=== PATIENT | male | born 1965 | race Caucasian/White ===

== ENCOUNTER 2023-04-08 08:43 | Day surgery (SDC) | payer OTHER ==
[2023-04-04 14:15] LABS: Basophils # (auto) 0 10 ^3/uL (0-0.2); Hemoglobin 15.5 g/dL (13.5-17.5); Mean Corpuscular Hgb Conc. 33.8 g/dL (32.0-36.0); Nucleated Red Blood Cells % 0.1 %
[2023-04-04 14:17] LABS: Basophils % (auto) 0.5 % (0.0-2.0); Eosinophils # (auto) 0.1 10 ^3/uL (0-0.8); Eosinophils % (auto) 1.8 % (0.0-7.0); Hematocrit 45.7 % (41.0-53.0); Lymphocytes # (auto) 1.3 10 ^3/uL (0.4-5.4); Lymphocytes % (auto) 16.1 % (10.0-50.0); Mean Corpuscular Hemoglobin 34.6 pg (28.0-32.0); Mean Corpuscular Volume 102.3 fL (80.0-100.0); Monocytes # (auto) 0.6 10 ^3/uL (0-1.3); Monocytes % (auto) 7.8 % (0.0-12.0); Neutrophils # (auto) 6.1 10 ^3/uL (1.6-8.6); Neutrophils % (auto) 73.8 % (37.0-80.0); Red Blood Cells 4.47 10^6/uL (4.5-5.90); Red Cell Distribution Width 13.7 % (11.8-14.3); White Blood Cell 8.2 10^3/uL (4.4-10.8)
[2023-04-04 14:38] LABS: INR 0.98 (0.9-1.15); Partial Thromboplastin Time 27.4 SEC (24.5-34.5); Prothrombin Time 10.3 sec (9.3-11.8)
[2023-04-04 14:44] LABS: Alanine Aminotransferase 41 U/L (7-40); Albumin 4.6 g/dL (3.2-4.8); Alkaline Phosphatase 52 U/L (46-116); Anion Gap 9 (5-15); Aspartate Aminotransferase 28 U/L (13-40); BUN/Creatinine Ratio 7.6 (10.0-20.0); Bilirubin, Total 1.2 mg/dL (0.2-1.0); Blood Urea Nitrogen 9 mg/dL (9-23); Calcium 9.6 mg/dL (8.5-10.1); Carbon Dioxide 28 mmol/L (20-30); Chloride 102 mmol/L (98-107); Glucose 97 mg/dL (74-106); Potassium 3.7 mmol/L (3.5-5.1); Sodium 139 mmol/L (136-145); Total Protein 7.4 g/dL (5.7-8.2)
[2023-04-07 16:29] LABS: Urine Bacteria NONE SEEN /hpf (None Seen); Urine Blood Negative /uL (Negative); Urine Clarity Clear (Clear); Urine Color Yellow (Yellow); Urine Protein, UAD Negative (Negative); Urine Specific Gravity 1.014 (1.001-1.035); Urine Urobilinogen Normal (Negative); Urine WBC <1 /hpf (0 - 3); Urine pH 6.5 (5.0-8.0)
[~2023-04-08] VITALS: Ht 177.8 cm; Wt 120.7 kg
[~2023-04-08 08:43] MED LIST: COLC0.6T56 PO; FAMO-68 PO; HYDR50CA2 PO; IBUP-1456 PO; METO-289 PO; NALT50TA5 PO; SENN-62 PO; TRAM50TA2 PO
[2023-04-08] MEDS ORDERED: fentaNYL CITRATE 100 MCG/2 ML VL ONE ×2 (09:37→12:46)
[2023-04-08] MEDS ORDERED: MEPERIDINE HCL (25 MG/ML) 1ML VIAL ONE ×2 (09:37→12:46)
[2023-04-08] MEDS ORDERED: MIDAZOLAM HCL 2MG/2ML 2ml VIAL (1mg/ml) ONE ×3 (09:37→13:11)
[2023-04-08] MEDS ORDERED: SUCCINYLCHOLINE CHLORIDE 20 MG/ML 10ML VIAL IV ONE (09:47)
[2023-04-08] MEDS ORDERED: ceFAZolin 1GM/50ML 100 ML IV ONE (09:50)
[2023-04-08] MEDS ORDERED: METOCLOPRAMIDE HCL 5MG/ml INJ 2ml VIAL IV PRN (10:15)
[2023-04-08] MEDS ORDERED: BUPIVACAINE HCL 50 ML ONE (10:15)
[2023-04-08] MEDS ORDERED: hydrALAZINE HCL 20 MG/ML VL IV PRN (10:15)
[2023-04-08] MEDS ORDERED: MIDAZOLAM HCL 2MG/2ML 2ml VIAL (1mg/ml) IV PRN (10:15)
[2023-04-08] MEDS ORDERED: DexAMETHasone SOD PHOS 10MG/1ML VIAL INJ ONE ×2 (10:15→13:10)
[2023-04-08] MEDS ORDERED: HYDROmorphone HCL 2 MG/ML VL/or syr IV PRN (10:15)
[2023-04-08] MEDS ORDERED: MORPHINE SULFATE 4 MG/ML SYR/VIAL IV PRN (10:15)
[2023-04-08] MEDS ORDERED: ePHEDrine SULFATE 50 MG/ML AMP IV PRN (10:15)
[2023-04-08] MEDS ORDERED: ONDANSETRON HCL 4 MG/2 ML VIAL IV PRN (10:15)
[2023-04-08] MEDS ORDERED: PROPOFOL 10 MG/ML 20 ML IV ONE (10:15)
[2023-04-08] MEDS ORDERED: LABETALOL HCL 5 MG/ML 4ML SYRINGE IV PRN (10:15)
[2023-04-08] MEDS ORDERED: ONDANSETRON HCL 4 MG/2 ML VIAL ONE (10:24)
[2023-04-08] MEDS ORDERED: HYDR1TAB97 PO (10:57)
[2023-04-08 11:12] VITALS: TEMP 97.2; O2SAT 100
[2023-04-08 12:27] VITALS: BP 146/85; PULSE 61; RESP 13; O2SAT 98
[2023-04-08] MEDS ORDERED: ETOMIDATE (2MG/ML) 20ML VIAL IV ONE (13:10)
[2023-04-08] MEDS ORDERED: ROCURONIUM 10MG/ML 10ML VIAL IV ONE (14:28)
[2023-04-08] MEDS ORDERED: SUGAMMADEX 200mg/2ml Vial (100MG/ML) IV ONE (14:32)
== END 2023-04-08 12:30 | disposition home or self-care (01) ==
LOC: SUR 08:43
PROVIDERS: ATTEND Orthopaedic Surgery Sports Medicine
DX: M1A.0221 Idiopathic chronic gout, left elbow, with tophus (tophi) (principal); M70.22 Olecranon bursitis, left elbow; I10 Essential (primary) hypertension; E78.5 Hyperlipidemia, unspecified; E66.01 Morbid (severe) obesity due to excess calories; Z68.38 Body mass index [BMI] 38.0-38.9, adult; Z79.899 Other long term (current) drug therapy; Z98.890 Other specified postprocedural states
CPT/HCPCS: 24075; 24105; 36415; 80053; 81001; 85025; 85610; 85730; 88305; J0330; J0690; J1100; J2175; J2250; J2405; J2704; J3010; J3490

== ENCOUNTER 2024-09-20 16:34 | Emergency (ER) | payer OTHER ==
[~2024-09-20] VITALS: Ht 177.8 cm; Wt 125.5 kg
[~2024-09-20 16:34] MED LIST changes: +HYDR1TAB97 PO
[2024-09-20 17:42] LABS: Basophils # (auto) 0.1 10 ^3/uL (0-0.2); Basophils % (auto) 0.9 % (0.0-2.0); Eosinophils # (auto) 0.3 10 ^3/uL (0-0.8); Eosinophils % (auto) 1.8 % (0.0-7.0); Hemoglobin 15.3 g/dL (13.5-17.5); Lymphocytes # (auto) 1.8 10 ^3/uL (0.4-5.4); Lymphocytes % (auto) 12.5 % (10.0-50.0); Mean Corpuscular Volume 91.2 fL (80.0-100.0); Monocytes % (auto) 7.2 % (0.0-12.0); Neutrophils # (auto) 10.9 10 ^3/uL (1.6-8.6); Neutrophils % (auto) 77.6 % (37.0-80.0); Platelet Count (auto) 300 10^3/uL (140-450); Red Blood Cells 4.93 10^6/uL (4.5-5.90)
--- NOTE | 2024-09-20 17:44 | ED.PDOC ---
History of Present Illness(SKN HPI Comments Reports increased pain with swelling and draiange from incision site on his left , lateral foot. Swelling with discoloration noted. States he had surgery to the left foot on 09/10/24 at the [facility] in [place]. Denies fever, chills, nausea, or vomiting Chief Complaint: Wound Check Time Seen by MD: 16:42 Primary Care Provider: [facility] History of Present Illness: Nurses Notes, Medications, Allergies Allergies: Coded Allergies: Statins (Unverified Allergy, Severe, anaphylaxis, 04/04/23) Home Meds Active Scripts Hydrocodone-Acetaminophen (Hydrocodone/Acetaminophen 5-325 mg) 1 Tab Tab, 1 TAB PO Q6HP PRN for 5 Days, #20 TAB Prov:ARMAND RITTER MD 04/08/23 Reported Medications Tramadol Hcl (Tramadol Hcl) 50 Mg Tab, 50 MG PO DAILY, TAB 04/04/23 Sennosides-Docusate Sodium (Senokot S) 1 Tab Tab, 1 TAB PO DAILY, TAB 04/04/23 Naltrexone Hcl (Naltrexone Hcl) 50 Mg Tab, 50 MG PO DAILY, TAB 04/04/23 Metoprolol Succinate (Metoprolol Succinate Er) 50 Mg Tab, 50 MG PO DAILY, TAB 04/04/23 Ibuprofen (Ibuprofen) 800 Mg Tab, 800 MG PO Q8HP, TAB 04/04/23 Hydroxyzine Pamoate (Hydroxyzine Pamoate) 50 Mg Cap, 50 MG PO BID, CAP 04/04/23 Famotidine (Gnp Acid Spline Rolling Machine Job Setter Maximum) 20 Mg Tab, 20 MG PO BID, TAB 04/04/23 Colchicine (COLCRYS TABLET) 0.6 Mg Tb, 0.6 MG PO DAILY, TAB 04/04/23 Information Source: Patient Mode of Arrival: Ambulatory Past Medical History PAST MEDICAL HISTORY: High Lipids, HTN, [place] Surgical History: Tonsillectomy Family History Family History: Unobtainable Social History Smoker: Non-Smoker Alcohol: Heavy Drugs: Denies Drug Use Lives In: Home Constitutional: denies: chills, diaphoresis, fatigue, fever, malaise, sweats, weakness, others EENTM: denies: blurred vision, double vision, ear bleeding, ear discharge, ear drainage, ear pain, ear ringing, eye pain, eye redness, hearing loss, mouth pain, mouth swelling, nasal discharge, nose bleeding, nose congestion, nose pain, photophobia, tearing, throat pain, throat swelling, voice changes, others Respiratory: denies: cough, hemoptysis, orthopnea, SOB at rest, shortness of breath, SOB with excertion, stridor, wheezing, others Cardiovascular: denies: chest pain, dizzy spells, diaphoresis, Dyspnea on exertion, edema, irregular heart beat, left arm pain, lightheadedness, palpitations, PND, syncope, others Gastrointestinal: denies: abdomen distended, abdominal pain, blood streaked bowels, constipated, diarrhea, dysphagia, difficulty swallowing, hematemesis, melena, nausea, poor appetite, poor fluid intake, rectal bleeding, rectal pain, vomiting, others Genitourinary: denies: burning, dysuria, flank pain, frequency, hematuria, incontinence, penile discharge, penile sore, pain, testicle pain, testicle swelling, urgency, others Neurological: denies: dizziness, fainting, headache, left sided numbness, left sided weakness, numbness, paresthesia, pre-existing deficit, right sided numbness, right sided weakness, seizure, speech problems, tingling, tremors, weakness, others Musculoskeletal: reports: gout (Bilateral hands and digits); denies: back pain, joint pain, joint swelling, muscle pain, muscle stiffness, neck pain, others Integumetry: reports: wounds (Left foot); denies: bruises, change in color, change in hair/nails, dryness, laceration, lesions, lumps, rash, others Allergic/Immunocompromised: denies: Difficulty Healing, Frequent Infections, Hives, Itching, others Hematologic/Lymphatic: denies: anemia, blood clots, easy bleeding, easy bruising, swollen glands, others Endocrine: denies: excessive hunger, excessive sweating, excessive thirst, excessive urination, flushing, intolerance to cold, intolerance to heat, unexplained weight gain, unexplained weight loss, others Psychiatric: denies: anxiety, bipolar disorder, depression, hopeless, panic disorder, schizophrenia, sleepless, suicidal, others Physical Exam General Appearance: No Apparent Distress, Normal HEENT: Pharynx Normal Neck: Full Range of Motion, Non-Tender Respiratory: Chest Non-Tender, Lungs Clear, No Respiratory Distress, Normal Breath Sounds Cardiovascular: No Edema, No JVD, No Murmur, No Gallop, Normal Peripheral Pulses, Regular Rate/Rhythm Breast Exam: Deferred Gastrointestinal: No Organomegaly, Non Tender, No Pulsatile Mass, Normal Bowel Sounds, Soft Genitalia: Deferred Pelvic: Deferred Rectal: Deferred Extremities: Normal capillary refill, Normal inspection, Normal range of motion, Non-tender, Pedal edema (Left Foot 3+ pitting) Musculoskeletal : Apperance: Normal Neurologic: Alert, food beverage manager II-XII nml as Tested, No Motor Deficits, Normal Affect, Normal Mood, No Sensory Deficits Cerebellar Function: Normal Reflexes: Normal Skin: Dry, Normal Color, Warm, Wounds (Moderate edema left foot with noted blister wound to dorsum aspect noted erythema throughout no noted drainage positive pedal pulse) Lymphatic: No Adenopathy Was a procedure done? Was a procedure done?: No Differential Diagnosis (INTG) Differential Diagnosis: Cellulitis, Contusion, Hematoma X-Ray, Labs, Meds, VS Vital Signs Date Time Temp Pulse Resp B/P (MAP) Pulse Ox O2 Delivery O2 Flow Rate FiO2 09/20/24 17:57 102 18 153/102 09/20/24 17:30 102 18 97 Room Air 09/20/24 17:30 97.7 102 18 153/102 (119) 97 97.7 09/20/24 17:16 97.7 102 18 153/102 (119) 97 97.7 Lab Test 09/20/24 17:55 09/20/24 17:19 Range/Units Lactic Acid Level 0.9 0.4-2.0 mmol/L White Blood Count 14.0 H 4.4-10.8 10^3/uL Red Blood Count 4.93 4.5-5.90 10^6/uL Hemoglobin 15.3 13.5-17.5 g/dL Hematocrit 45.0 41.0-53.0 % Mean Corpuscular Volume 91.2 80.0-100.0 fL Mean Corpuscular Hemoglobin 31.0 28.0-32.0 pg Mean Corpuscular Hemoglobin Concent 34.0 32.0-36.0 g/dL Red Cell Distribution Width 16.0 H 11.8-14.3 % Platelet Count 300 140-450 10^3/uL Mean Platelet Volume 8.3 6.9-10.8 fL Neutrophils (%) (Auto) 77.6 37.0-80.0 % Lymphocytes (%) (Auto) 12.5 10.0-50.0 % Monocytes (%) (Auto) 7.2 0.0-12.0 % Eosinophils (%) (Auto) 1.8 0.0-7.0 % Basophils (%) (Auto) 0.9 0.0-2.0 % Neutrophils # (Auto) 10.9 H 1.6-8.6 10 ^3/uL Lymphocytes # (Auto) 1.8 0.4-5.4 10 ^3/uL Monocytes # (Auto) 1.0 0-1.3 10 ^3/uL Eosinophils # (Auto) 0.3 0-0.8 10 ^3/uL Basophils # (Auto) 0.1 0-0.2 10 ^3/uL Nucleated Red Blood Cells 0.0 % Sodium Level 138 136-145 mmol/L Potassium Level 4.0 3.5-5.1 mmol/L Chloride Level 108 H 98-107 mmol/L Carbon Dioxide Level 20 20-31 mmol/L Anion Gap 10 5-15 Blood Urea Nitrogen 20 9-23 mg/dL Creatinine 1.07 0.700-1.30 mg/dL Glomerular Filtration Rate Calc 79 >90 mL/min BUN/Creatinine Ratio 18.7 10.0-20.0 Serum Glucose 94 74-106 mg/dL Calcium Level 9.8 8.7-10.4 mg/dL Total Bilirubin 0.4 0.2-1.0 mg/dL Aspartate Amino Transferase (AST) 17 13-40 U/L Alanine Aminotransferase (ALT) 11 7-40 U/L Alkaline Phosphatase 73 46-116 U/L Total Protein 8.0 5.7-8.2 g/dL Albumin 4.8 3.2-4.8 g/dL Current Medications Medications (Trade) Dose Ordered Sig/Ancelmo Route Start Time Stop Time Status Last Admin Morphine Sulfate 2 mg ONCE ONCE IM 09/20/24 17:15 09/20/24 17:16 DC 09/20/24 17:57 X-Ray, Labs, Meds, VS Comment IMAGING: CT LEFT FOOT IMPRESSION: Significant subcutaneous edema. Fluid collection containing probable bone fragments adjacent to the medial malleolus. Large fluid collection containing possible blood products and less likely bony fragments adjacent to the distal 5th metatarsal. There also multiple subcortical cysts the most prominent involving the 1st metatarsophalangeal joint consistent with severe osteoarthritis. : WBC 14.0, NEUTROPHILS 10 LACTIC ACID 0.9 CMP WITHIN NORMAL LIMITS MEDICATIONS: VANCOMYCIN 1 G IV MORPHINE 2 MG IV PLAN: SPOKE WITH DR. ANGELA WILDE ACCEPTS PATIENT FOR TRANSFER VIA BLS FOR CONSULTATION WITH PATIENT'S SURGEON DR. SARAVIA. PATIENT IS STABLE FOR BLS TRANSFER. PATIENT AGREES WITH PLAN OF CARE AND TRANSFER. Time of 1ST Reevaluation: 17:43 Reevaluation 1ST: Unchanged Patient Education/Counseling: Diagnosis, Treatment, Prognosis, Need For Follow Up Family Education/Counseling: No Family Present Departure 1 Departure Time of Disposition: 17:44 Impression: Primary Impression: Infection of left foot Disposition: 04 INTERMEDIATE CARE FACILITY Condition: Stable Discharged With: Self Critical Care Note Critical Care Time?: No Stability Stability form required: GREER Escalera Sep 20, 2024 17:44
[2024-09-20] MEDS: MORPHINE SULFATE INJ 2 MG/ml SYRG IM ONE (17:57)
[2024-09-20 18:00] LABS: Alanine Aminotransferase 11 U/L (7-40); Alkaline Phosphatase 73 U/L (46-116); Anion Gap 10 (5-15); Aspartate Aminotransferase 17 U/L (13-40); BUN/Creatinine Ratio 18.7 (10.0-20.0); Blood Urea Nitrogen 20 mg/dL (9-23); Calcium 9.8 mg/dL (8.7-10.4); Carbon Dioxide 20 mmol/L (20-31); Glucose 94 mg/dL (74-106); Sodium 138 mmol/L (136-145)
[2024-09-20 18:01] LABS: Albumin 4.8 g/dL (3.2-4.8); Chloride 108 mmol/L (98-107)
[2024-09-20 18:02] LABS: Bilirubin, Total 0.4 mg/dL (0.2-1.0)
--- NOTE | 2024-09-20 19:18 | DVH ---
EXAMINATION: CT CT L FOOT WO CONTRAST INDICATION: post surgical infection COMPARISON: None TECHNIQUE: CT of the left foot was performed without contrast. Volume transverse images were obtained reconstructed in multiple planes using bone and soft tissue algorithms. CONTRAST: None CTDI = 7.75 mGy and DLP = 222.91 mGy cm FINDINGS: Bones are osteopenic.110 there is a large amount of subcutaneous fluid involving the dorsum and lateral hindfoot of the ankle and foot. There are focal calcifications possibilities is result of enthesopathy or bony fragmentation adjacent to the medial malleolus and also in the achilles. There is a large loculated fluid collection also c ontaining dense debris possibly old blood adjacent to the dorsal aspect of the 5th meta tarsal. Adjac ent to multiple sutures. There is a significant subcortical cyst involving the head of the 1st metata rsal probably degenerative in nature. There is also a subcortical cysts involving the middle phalanx of the 3rd digit probably degenerative in nature. The soft tissue lesion adjacent to the 5th metatarsal measures 4.66 x 2.47 by 4.68 cm contains either dense blood products or possible blood products and calcifications. IMPRESSION: Significant subcutaneous edema. Fluid collection containing probable bone fragments adjacent to the medial malleolus. Large fluid collection containing possible blood products and less likely bony fragments adjacent to the distal 5th metatarsal. There also multiple subcortical cysts the most prominent involving the 1st metatarsophalangeal joint consistent with severe osteoarthritis.
[2024-09-20] MEDS: VANCOMYCIN 1GM/200ML PM 250 ML IV ONE (19:39)
[2024-09-20] MEDS: MORPHINE SULFATE INJ 2 MG/ml SYRG IV ONE (21:01)
[2024-09-20 21:24] VITALS: BP 171/106; PULSE 63; RESP 20; TEMP 97.4; O2SAT 100
[2024-09-20] MEDS: cloNIDine HCL 0.1 MG TAB PO ONE (21:28)
== END 2024-09-20 17:44 | disposition short-term general hospital (02) ==
LOC: ER 16:34
DX: L08.89 Other specified local infections of the skin and subcutaneous tissue (principal); M79.671 Pain in right foot; I10 Essential (primary) hypertension; E78.5 Hyperlipidemia, unspecified; Z79.899 Other long term (current) drug therapy; Z90.89 Acquired absence of other organs; Z88.8 Allergy status to other drugs, medicaments and biological substances
CPT/HCPCS: 36415; 73700; 80053; 83605; 85025; 87040; 96372; 99285; J2270

== ENCOUNTER 2024-11-09 14:11 | Inpatient (IN) | payer OTHER ==
[~2024-11-09] VITALS: Ht 177.8 cm; Wt 118.0 kg
--- NOTE | 2024-11-09 14:50 | ED.PDOC ---
History of Present Illness HPI Comments 59-year-old male with PMHx Gout, Alcoholic Pancreatitis, Gastritis presents with a chief complaint of syncope. Per , patient has had a lot of alcohol today and also took muscle relaxers and pain killers. Patient states that he was "just walking" and then had a syncopal episode and he lost consciousness. Patient mentions that he hit his head from the fall. Patient has pin point pupils. Chief Complaint: Syncope Time Seen by MD: 14:40 Primary Care Provider: [place] Reviewed Notes: Medications, Allergies Allergies: Coded Allergies: Statins (Unverified Allergy, Severe, anaphylaxis, 04/04/23) Home Meds Active Scripts Hydrocodone-Acetaminophen (Hydrocodone/Acetaminophen 5-325 mg) 1 Tab Tab, 1 TAB PO Q6HP PRN for 5 Days, #20 TAB Prov:ARMAND RITTER MD 04/08/23 Reported Medications Tramadol Hcl (Tramadol Hcl) 50 Mg Tab, 50 MG PO DAILY, TAB 04/04/23 Sennosides-Docusate Sodium (Senokot S) 1 Tab Tab, 1 TAB PO DAILY, TAB 04/04/23 Naltrexone Hcl (Naltrexone Hcl) 50 Mg Tab, 50 MG PO DAILY, TAB 04/04/23 Metoprolol Succinate (Metoprolol Succinate Er) 50 Mg Tab, 50 MG PO DAILY, TAB 04/04/23 Ibuprofen (Ibuprofen) 800 Mg Tab, 800 MG PO Q8HP, TAB 04/04/23 Hydroxyzine Pamoate (Hydroxyzine Pamoate) 50 Mg Cap, 50 MG PO BID, CAP 04/04/23 Famotidine (Gnp Acid Hvac Field Service Technician Maximum) 20 Mg Tab, 20 MG PO BID, TAB 04/04/23 Colchicine (COLCRYS TABLET) 0.6 Mg Tb, 0.6 MG PO DAILY, TAB 04/04/23 Information Source: Patient Mode of Arrival: Ambulatory Severity: Moderate Timing: Hours Duration: Since onset Prehospital treatment: [facility] Past Medical History PAST MEDICAL HISTORY: High Lipids, HTN, [place] Surgical History: Tonsillectomy Family History Family History: Unobtainable Social History Smoker: Non-Smoker Alcohol: Heavy Drugs: Denies Drug Use Lives In: Home Constitutional: denies: chills, diaphoresis, fatigue, fever, malaise, sweats, weakness, others EENTM: denies: blurred vision, double vision, ear bleeding, ear discharge, ear drainage, ear pain, ear ringing, eye pain, eye redness, hearing loss, mouth pain, mouth swelling, nasal discharge, nose bleeding, nose congestion, nose pain, photophobia, tearing, throat pain, throat swelling, voice changes, others Respiratory: denies: cough, hemoptysis, orthopnea, SOB at rest, shortness of breath, SOB with excertion, stridor, wheezing, others Cardiovascular: reports: syncope; denies: chest pain, dizzy spells, diaphoresis, Dyspnea on exertion, edema, irregular heart beat, left arm pain, lightheadedness, palpitations, PND, others Gastrointestinal: denies: abdomen distended, abdominal pain, blood streaked bowels, constipated, diarrhea, dysphagia, difficulty swallowing, hematemesis, melena, nausea, poor appetite, poor fluid intake, rectal bleeding, rectal pain, vomiting, others Genitourinary: denies: burning, dysuria, flank pain, frequency, hematuria, incontinence, penile discharge, penile sore, pain, testicle pain, testicle swelling, urgency, others Neurological: denies: dizziness, fainting, headache, left sided numbness, left sided weakness, numbness, paresthesia, pre-existing deficit, right sided numbness, right sided weakness, seizure, speech problems, tingling, tremors, weakness, others Musculoskeletal: denies: back pain, gout, joint pain, joint swelling, muscle pain, muscle stiffness, neck pain, others Integumetry: denies: bruises, change in color, change in hair/nails, dryness, laceration, lesions, lumps, rash, wounds, others Allergic/Immunocompromised: denies: Difficulty Healing, Frequent Infections, Hives, Itching, others Hematologic/Lymphatic: denies: anemia, blood clots, easy bleeding, easy bruising, swollen glands, others Endocrine: denies: excessive hunger, excessive sweating, excessive thirst, excessive urination, flushing, intolerance to cold, intolerance to heat, unexplained weight gain, unexplained weight loss, others Psychiatric: denies: anxiety, bipolar disorder, depression, hopeless, panic disorder, schizophrenia, sleepless, suicidal, others All Other Systems: Reviewed and Negative Physical Exam General Appearance: No Apparent Distress, Normal HEENT: Normal ENT Inspection, Pharynx Normal, TMs Normal Neck: Full Range of Motion, Non-Tender, Normal, Normal Inspection Respiratory: Chest Non-Tender, Lungs Clear, No Accessory Muscle Use, No R espiratory Distress, Normal Breath Sounds Cardiovascular: No Edema, No JVD, No Murmur, No Gallop, Normal Peripheral Pulses, Regular Rate/Rhythm Breast Exam: Deferred Gastrointestinal: No Organomegaly, Non Tender, No Pulsatile Mass, Normal Bowel Sounds, Soft Genitalia: Deferred Pelvic: Deferred Rectal: Deferred Extremities: No calf tenderness, Normal capillary refill, Normal inspection, Normal range of motion, Non-tender, No pedal edema Musculoskeletal : Apperance: Normal Neurologic: Alert, director of hemophilia II-XII nml as Tested, No Motor Deficits, Normal Affect, Normal Mood, No Sensory Deficits, Other (PINPOINT PUPILS) Cerebellar Function: Normal Reflexes: Normal Skin: Dry, Normal Color, Warm Lymphatic: No Adenopathy Was a procedure done? Was a procedure done?: No Differential Dx Considerations may include: intoxication, vasovagal syncope, grove [place]ro syncope, acs, hypoglycemia, hypovolemia, electrolyte disorders, seizure, intracranial bleed, skull fracture, c spine fracture X-Ray, Labs, Meds, VS Vital Signs Date Time Temp Pulse Resp B/P (MAP) Pulse Ox O2 Delivery O2 Flow Rate FiO2 11/09/24 14:30 98.6 120 18 159/99 (119) 98 98.6 11/09/24 14:16 115 Lab Test 11/09/24 16:32 11/09/24 16:27 11/09/24 15:35 Range/Units Troponin I High Sensitivity Pending 9 </=54 ng/L Urine Opiates Screen Pending Urine Fentanyl Screen Pending Urine Barbiturates Screen Pending Urine Phencyclidine Screen Pending Urine Amphetamines Screen Pending Urine Benzodiazepines Screen Pending Urine Cocaine Screen Pending Urine Cannabinoids Screen Pending White Blood Count 8.0 4.4-10.8 10^3/uL Red Blood Count 5.22 4.5-5.90 10^6/uL Hemoglobin 16.9 13.5-17.5 g/dL Hematocrit 50.1 41.0-53.0 % Mean Corpuscular Volume 96.0 80.0-100.0 fL Mean Corpuscular Hemoglobin 32.4 H 28.0-32.0 pg Mean Corpuscular Hemoglobin Concent 33.8 32.0-36.0 g/dL Red Cell Distribution Width 19.0 H 11.8-14.3 % Platelet Count 296 140-450 10^3/uL Mean Platelet Volume 7.8 6.9-10.8 fL Neutrophils (%) (Auto) 68.6 37.0-80.0 % Lymphocytes (%) (Auto) 22.1 10.0-50.0 % Monocytes (%) (Auto) 7.8 0.0-12.0 % Eosinophils (%) (Auto) 0.6 0.0-7.0 % Basophils (%) (Auto) 0.9 0.0-2.0 % Neutrophils # (Auto) 5.5 1.6-8.6 10 ^3/uL Lymphocytes # (Auto) 1.8 0.4-5.4 10 ^3/uL Monocytes # (Auto) 0.6 0-1.3 10 ^3/uL Eosinophils # (Auto) 0 0-0.8 10 ^3/uL Basophils # (Auto) 0.1 0-0.2 10 ^3/uL Nucleated Red Blood Cells 0.1 % Sodium Level 142 136-145 mmol/L Potassium Level 4.6 3.5-5.1 mmol/L Chloride Level 104 98-107 mmol/L Carbon Dioxide Level 15 L 20-31 mmol/L Anion Gap 23 H 5-15 Blood Urea Nitrogen 16 9-23 mg/dL Creatinine 1.05 0.700-1.30 mg/dL Glomerular Filtration Rate Calc 81 >90 mL/min BUN/Creatinine Ratio 15.2 10.0-20.0 Serum Glucose 69 L 74-106 mg/dL Calcium Level 9.7 8.7-10.4 mg/dL Plasma/Serum Blood Alcohol 343.4 H <10 mg/dL Time of 1ST Reevaluation: 15:20 Reevaluation 1ST: Unchanged Reevaluation 2ND: Improved Patient Education/Counseling: Diagnosis, Treatment, Prognosis, Need For Follow Up Family Education/Counseling: No Family Present Additional Information although pt has an high level of etoh, he is clinically sober, alert, clear minded. it is unusual to black out suddenly then wake up to be in a normal state. i will admit him for further workups Departure 1 Departure Time of Disposition: 16:40 Impression: Primary Impression: Syncope Qualified Codes: R55 - Syncope and collapse Additional Impression: ETOH abuse Disposition: ADMITTED INPATIENT Admit to: Tele Condition: Serious Discharged With: Self Critical Care Note Critical Care Time?: Yes (55 min-critical care time only) Critical care comment: due to concerns for patient's condition deteriorating, the care required my highest level of attention and readiness to intervene. i assessed the patient's condition, ordered the proper tests and treatments, reassessed for response and reviewed the results. i communicated with medical personnel and formulated a plan of care. total critical care time does not include any procedures Stability Stability form required: No Heart Score Heart Score: Heart Score Response (Comments) Value History N/A 0 EKG N/A 0 Age N/A 0 Risk Factors N/A 0 Troponin N/A 0 Total 0 I personally scribed for DESEAN ARROYO MD ([email or web address]) on 11/09/24 at 14:50. Electronically submitted by Carlos Zuñiga ([email or web address]). EDSEAN ARROYO MD November 09, 2024 14:50
--- NOTE | 2024-11-09 15:22 | DVH ---
INDICATION: syncope TECHNIQUE: Frontal view of the chest. COMPARISON: None FINDINGS: Findings:. The heart and mediastinal contours are grossly unremarkable. There is no evidence of pleu ral disease. The lungs are clear. The bony structures of the chest are intact without fracture. IMPRESSION: 1. No evidence of acute disease.
--- NOTE | 2024-11-09 15:23 | DVH ---
INDICATION: syncope COMPARISON: None TECHNIQUE: 5 views of the cervical spine were obtained. FINDINGS: The cervical vertebral alignment is normal. The predental space is normal. The intervertebral disc spaces are well-maintained. No significant facet arthropathy is noted. No acute fracture, vertebral compression deformity or aggressive osseous lesions. The imaged lung apices are unremarkable. There is calcification seen in the left neck region possibly carotid calcification. IMPRESSION: 1. No acute fracture. 2. Calcification in the left neck region possibly carotid artery calcification. Recommend carotid dop pler for further workup.
--- NOTE | 2024-11-09 15:33 | DVH ---
EXAM: CT HEAD WITHOUT CONTRAST HISTORY: syncope COMPARISON: None TECHNIQUE: Noncontrast axial CT images of the head were performed. Sagittal and coronal reformatted i mages were obtained. This CT exam was performed using 1 or more of the following dose reduction techn iques: Automated exposure control, adjustment of the mA and/or kv according to patient size, or the u se of iterative reconstruction techniques. Radiation Dose: CTDI volume is 61.75 mGy. Dose-length product is 1216.83 mGy*cm FINDINGS: There is mild global brain atrophy. No intracranial hemorrhage, mass, hydrocephalus, or evidence of a cute large vessel infarct. There are atherosclerotic calcifications of the cavernous carotid arteries . Oscar cisterna magna is incidentally noted. There is minimal mucosal thickening in the left maxillar y sinus. There is a dental cavity involving the most posterior right maxillary molar tooth, not full y imaged here. There is lucency about the roots of the bilateral most posterior maxillary molar teet h, not fully imaged here. There is divergent optic gaze. The bilateral mastoid air cells and middle e ar spaces are clear. No cranial fracture or scalp edema. IMPRESSION: 1. No acute intracranial process. 2. Minimal left maxillary sinus disease. 3. At least 1 maxillary dental cavity and lucency about the roots of multiple maxillary teeth. Recomm end outpatient dental consultation.
[2024-11-09 15:52] LABS: Basophils # (auto) 0.1 10 ^3/uL (0-0.2); Basophils % (auto) 0.9 % (0.0-2.0); Eosinophils # (auto) 0 10 ^3/uL (0-0.8); Eosinophils % (auto) 0.6 % (0.0-7.0); Hematocrit 50.1 % (41.0-53.0); Hemoglobin 16.9 g/dL (13.5-17.5); Lymphocytes # (auto) 1.8 10 ^3/uL (0.4-5.4); Lymphocytes % (auto) 22.1 % (10.0-50.0); Mean Corpuscular Hemoglobin 32.4 pg (28.0-32.0); Mean Corpuscular Hgb Conc. 33.8 g/dL (32.0-36.0); Monocytes # (auto) 0.6 10 ^3/uL (0-1.3); Monocytes % (auto) 7.8 % (0.0-12.0); Neutrophils # (auto) 5.5 10 ^3/uL (1.6-8.6); Neutrophils % (auto) 68.6 % (37.0-80.0); Nucleated Red Blood Cells % 0.1 %; Platelet Count (auto) 296 10^3/uL (140-450); Red Blood Cells 5.22 10^6/uL (4.5-5.90)
[2024-11-09 16:00] LABS: Chloride 104 mmol/L (98-107); Potassium 4.6 mmol/L (3.5-5.1); Sodium 142 mmol/L (136-145)
[2024-11-09 16:01] LABS: Anion Gap 23 (5-15); Carbon Dioxide 15 mmol/L (20-31)
[2024-11-09 16:02] LABS: Calcium 9.7 mg/dL (8.7-10.4)
[2024-11-09 16:06] LABS: BUN/Creatinine Ratio 15.2 (10.0-20.0); Blood Urea Nitrogen 16 mg/dL (9-23)
[2024-11-09] MEDS: IBUPROFEN 800 MG TAB PO ONE (16:06)
[2024-11-09 16:07] LABS: Glucose 69 mg/dL (74-106)
[2024-11-09 16:16] LABS: Blood Alcohol 343.4 mg/dL (<10)
[2024-11-09 16:50] LABS: Amphetamine Screen, Urine Neg (NEGATIVE); Barbiturate Scree,Urine Neg (NEGATIVE); Benzodiazephine Screen, Urine Neg (NEGATIVE); Cannabinoid Screen, Urine Neg (NEGATIVE); Cocaine Screen, Urine Neg (NEGATIVE); Opiate Scree,Urine Neg (NEGATIVE); Phencyclidine Screen, Urine Neg (NEGATIVE)
--- NOTE | 2024-11-09 17:06 | DVHHP2 ---
History of Present Illness Reason for Visit: Syncope History of Present Illness Jonny Valiente is a 59-year-old male with past medical history of hypertension, hyperlipidemia, [place], gout, gastritis, alcoholic pancreatitis, tonsillectomy, excision of tophi, left hand plate, right hand screw, bilateral carpal tunnel surgery, bilateral knee surgery, bilateral shoulder surgery, left foot surgery x5, and bilateral elbow surgery who presents to the ED with a syncopal episode. 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 Patient reports that he passed out on his right side and c omplains of right sided head pain. Patient reports that when he woke up EMS had taken him to the hospital. When discussed the results of the imaging patient states that he is aware that he has multiple cavities. He also endorses that he sees a psychiatrist at the [facility] for his PTSD and he is on medications but does not recall with the name is. Patient also reports that he walks and is bowlegged. Patient denies any chest pain, shortness of breath, abdominal pain, nausea, vomiting, diarrhea, recent travels, recent sick contacts, recent ingestion of spoiled food, or dysuria symptoms. Cardiovascular: HTN, [place], hyperipidemia GI: Gastritis Rheumatologic: Gout Past Medical History Alcoholic pancreatitis Past Surgical History: Other (Excision of tophi, left hand plate, right hand screw, bilateral carpal tunnel surgery, bilateral knee surgery, bilateral shoulder surgery, left foot surgery x5, and bilateral elbow surgery), Tonsillectomy Family History: Other (Both parents ) Smoke: <1 pack per day ALCOHOL: heavy Drugs: None Lives: with Family Domestic Violence: Neg Review of Systems Constitutional: Yes: Other Allergies: Coded Allergies: Statins (Unverified Allergy, Severe, anaphylaxis, 04/04/23) Exam Vital Signs Vital Signs Date Time Temp Pulse Resp B/P (MAP) Pulse Ox O2 Delivery O2 Flow Rate FiO2 11/09/24 14:30 98.6 120 18 159/99 (119) 98 98.6 General Appearance: Alert, Oriented X3, Cooperative, No acute distress HEENT: Atraumatic, PERRLA, EOMI, Mucous membr. moist/pink Respiratory: Clear to auscultation Cardiovascular: Normal S1, Normal S2 Abdominal: Normal bowel sounds, Soft Extremities: No cyanosis, Normal pulses Neuro: Normal speech, Strength at 5/5 X4 ext, Normal tone, Sensation intact Psych/Mental Status: Mental status NL, Mood NL Labs/Xrays Labs Test 11/09/24 16:32 11/09/24 16:27 11/09/24 15:35 Range/Units Troponin I High Sensitivity 9 </=54 ng/L Urine Opiates Screen Neg NEGATIVE Urine Fentanyl Screen Neg NEGATIVE Urine Barbiturates Screen Neg NEGATIVE Urine Phencyclidine Screen Neg NEGATIVE Urine Amphetamines Screen Neg NEGATIVE Urine Benzodiazepines Screen Neg NEGATIVE Urine Cocaine Screen Neg NEGATIVE Urine Cannabinoids Screen Neg NEGATIVE White Blood Count 8.0 4.4-10.8 10^3/uL Red Blood Count 5.22 4.5-5.90 10^6/uL Hemoglobin 16.9 13.5-17.5 g/dL Hematocrit 50.1 41.0-53.0 % Mean Corpuscular Volume 96.0 80.0-100.0 fL Mean Corpuscular Hemoglobin 32.4 H 28.0-32.0 pg Mean Corpuscular Hemoglobin Concent 33.8 32.0-36.0 g/dL Red Cell Distribution Width 19.0 H 11.8-14.3 % Platelet Count 296 140-450 10^3/uL Mean Platelet Volume 7.8 6.9-10.8 fL Neutrophils (%) (Auto) 68.6 37.0-80.0 % Lymphocytes (%) (Auto) 22.1 10.0-50.0 % Monocytes (%) (Auto) 7.8 0.0-12.0 % Eosinophils (%) (Auto) 0.6 0.0-7.0 % Basophils (%) (Auto) 0.9 0.0-2.0 % Neutrophils # (Auto) 5.5 1.6-8.6 10 ^3/uL Lymphocytes # (Auto) 1.8 0.4-5.4 10 ^3/uL Monocytes # (Auto) 0.6 0-1.3 10 ^3/uL Eosinophils # (Auto) 0 0-0.8 10 ^3/uL Basophils # (Auto) 0.1 0-0.2 10 ^3/uL Nucleated Red Blood Cells 0.1 % Sodium Level 142 136-145 mmol/L Potassium Level 4.6 3.5-5.1 mmol/L Chloride Level 104 98-107 mmol/L Carbon Dioxide Level 15 L 20-31 mmol/L Anion Gap 23 H 5-15 Blood Urea Nitrogen 16 9-23 mg/dL Creatinine 1.05 0.700-1.30 mg/dL Glomerular Filtration Rate Calc 81 >90 mL/min BUN/Creatinine Ratio 15.2 10.0-20.0 Serum Glucose 69 L 74-106 mg/dL Calcium Level 9.7 8.7-10.4 mg/dL Plasma/Serum Blood Alcohol 343.4 H <10 mg/dL EXAM: CT HEAD WITHOUT CONTRAST HISTORY: syncope COMPARISON: None TECHNIQUE: Noncontrast axial CT images of the head were performed. Sagittal and coronal reformatted images were obtained. This CT exam was performed using 1 or more of the following dose reduction techniques: Automated exposure control, adjustment of the mA and/or kv according to patient size, or the use of iterative reconstruction techniques. Radiation Dose: CTDI volume is 61.75 mGy. Dose-length product is 1216.83 mGy*cm FINDINGS: There is mild global brain atrophy. No intracranial hemorrhage, mass, hydrocephalus, or evidence of acute large vessel infarct. There are atheroscler otic calcifications of the cavernous carotid arteries. Oscar cisterna magna is incidentally noted. There is minimal mucosal thickening in the left maxillary sinus. There is a dental cavity involving the most posterior right maxillary molar tooth, not fully imaged here. There is lucency about the roots of the bilateral most posterior maxillary molar teeth, not fully imaged here. There is divergent optic gaze. The bilateral mastoid air cells and middle ear spaces are clear. No cranial fracture or scalp edema. IMPRESSION: 1. No acute intracranial process. 2. Minimal left maxillary sinus disease. 3. At least 1 maxillary dental cavity and lucency about the roots of multiple maxillary teeth. Recommend outpatient dental consultation. INDICATION: syncope TECHNIQUE: Frontal view of the chest. COMPARISON: None FINDINGS: Findings:. The heart and mediastinal contours are grossly unremarkable. There is no evidence of pleural disease. The lungs are clear. The bony structures of the chest are intact without fracture. IMPRESSION: 1. No evidence of acute disease. INDICATION: syncope COMPARISON: None TECHNIQUE: 5 views of the cervical spine were obtained. FINDINGS: The cervical vertebral alignment is normal. The predental space is normal. The intervertebral disc spaces are well-maintained. No significant facet arthrop athy is noted. No acute fracture, vertebral compression deformity or aggressive osseous lesions. The imaged lung apices are unremarkable. There is calcification seen in the left neck region possibly carotid calcification. IMPRESSION: 1. No acute fracture. 2. Calcification in the left neck region possibly carotid artery calcification. Recommend carotid doppler for further workup. Assessment/Plan Assessment/Plan Assessment Autonomic imbalance Tooth cavities ETOH abuse Tobacco use Obesity Maxillary sinusitis Possible carotid artery calcification History of hypertension History of hyperlipidemia History of [place] History of gout History of gastritis History of alcohol pancreatitis History of tonsillectomy History excision of toe by History of left hand plate History of right hand screw History of bilateral carpal tunnel surgery History of bilateral knee surgery History of bilateral surgery surgery History of left foot surgery x5 History of bilateral elbow surgery Plan Admit to med surge Antiemetics Pain management UA UDS noted Chest x-ray noted Troponin negative x2 CT head noted X-ray C-spine noted EKG Echo ordered Carotid Doppler ordered IV antibiotics-ceftriaxone Diet Home medications reconciled DVT prophylaxis-Lovenox PUD prophylaxis-PPIs Discussed plan of care with patient and nurse JESEWA protocol Multivitamins Thiamine Folic acid Psych consult Counseled patient on cessation of tobacco use and alcohol use Recommended outpatient dental consultation Plan discussed with: Patient My Orders Orders - ANDRES CARO Procedure Category Date Status Time Carotid Duplx W Color US 11/09/24 Logged DOP 16:49 Admit ADMIT 11/09/24 Verified 16:50 Allergies BRENDA 11/09/24 Verified 16:50 Code Status CODE 11/09/24 Verified 16:50 Hydrocodone-Acet PHA 11/09/24 Verified 5/325mg Tab ([place] 17:00 Ondansetron Hcl PHA 11/09/24 Verified (Zofran) 17:00 Enoxaparin Sodium PHA 11/10/24 Verified (Lovenox) 10:00 Complete Blood Count LAB 11/10/24 Verified 04:00 Comprehensive LAB 11/10/24 Verified Metabolic Panel 04:00 Cardiac DIET 11/09/24 Verified Diet-2gna,Lofat,Lochol Dinner Echo 2d Mode Cardiac US 11/09/24 Verified DOP 16:50 Acetaminophen Tablet PHA 11/09/24 Verified (Tylenol Tablet) 17:00 Nitroglycerin PHA 11/09/24 Verified Sublingual (Ntrostat 17:00 Morphine Sulfate PHA 11/09/24 Verified Injection 17:00 Stat Ekg For Chest BRENDA 11/09/24 Verified Pain 16:50 Notify Md Of Changes BRENDA 11/09/24 Verified From Base 16:50 Pulley Worker For BRENDA 11/09/24 Verified 24 Hours 16:50 Emergency Dysrhythmia BRENDA 11/09/24 Verified Protocol 16:50 Rhythm Strips Once BRENDA 11/09/24 Verified Every Shift 16:50 Oxygen By Nasal RT 11/09/24 Verified Cannula 16:50 * Psychiatric Consult CONS 11/09/24 Verified 16:50 Colchicine (Colcrys) PHA 11/10/24 Verified 10:00 Famotidine Tablet PHA 11/09/24 Verified (Pepcid Tablet) 22:00 Metoprolol Xl PHA 11/10/24 Verified Succinate (Toprol Xl) 10:00 (Nf) Hydroxyzine PHA 11/09/24 Verified Pamoate 22:00 (Nf) Naltrexone Hcl PHA 11/10/24 Verified 10:00 Date of Service: November 09, 2024 Billing Provider: ANDRES CARO Common Visit Codes: [id number] INP/OBS CARE (HIGH) ANDRES CARO November 09, 2024 17:06
--- NOTE | 2024-11-09 17:53 | DVH ---
Carotid Duplex Date: 11/09/2024 05:05 PM Clinical History: calcification Comparison: None Technique: Duplex Doppler evaluation of the extracranial carotid and vertebral arteries including col or Doppler and spectral/pulsed waveform analysis was performed. Findings: RIGHT SIDE: The peak systolic velocities are 82 cm/s in the distal CCA and 94 cm/s in the distal ICA.The ICA/CCA ratio is less than 2. The external carotid artery is patent with peak systolic velocity of 123 cm/s proximally. There is appropriate antegrade flow in the right vertebral artery. LEFT SIDE: The peak systolic velocities are 102 cm/s in the distal CCA and 94 cm/s in the distal ICA.. The ICA/C CA ratio is less than 1. The external carotid artery is patent with peak systolic velocity of 82 cm/s proximally. There is appropriate antegrade flow in the left vertebral artery. IMPRESSION: No hemodynamically significant stenosis noted in the right carotid system. No hemodynamically significant stenosis noted in the left carotid system. Reference: Radiology 2003; 229:340-346
--- NOTE | 2024-11-09 19:10 | ECG ---
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
[2024-11-09 20:16] VITALS: PULSE 107; RESP 16; O2SAT 98
[2024-11-09 20:45] VITALS: BP 149/88; PULSE 95; RESP 20; TEMP 98.1; O2SAT 96
[2024-11-09] MEDS: HYDROcodone-ACET 5/325MG TAB PO PRN (20:57)
[2024-11-09] MEDS: ONDANSETRON HCL 4 MG/2 ML VIAL IV PRN (21:09)
[2024-11-09] MEDS: cefTRIAXone 1GM/50ML D5W 50 ML IV SCH (21:11)
[2024-11-09] MEDS ORDERED: MELA10CA OR (21:37)
[2024-11-09] MEDS ORDERED: TRAZ-228 PO (21:38)
[2024-11-09] MEDS: FOLIC ACID 1 MG TAB PO ONE (21:38)
[2024-11-09] MEDS: THIAMINE HCL 100 MG TAB PO ONE (21:39)
[2024-11-09] MEDS: MULTIPLE VITAMIN TAB PO ONE (21:39)
[2024-11-09] MEDS: HYDROXYZINE PAMOATE 50 MG PO SCH (22:00)
[2024-11-09] MEDS: FAMOTIDINE 20 MG TAB PO SCH (23:16)
[2024-11-09 23:30] VITALS: BP 174/107; PULSE 106; RESP 16; TEMP 97.9; O2SAT 96
[2024-11-10] VITALS (9 sets, daily range): BP systolic 153–189; BP diastolic 85–104; PULSE 65–114; RESP 16–19; TEMP 97.7–98.4; O2SAT 96–98
[2024-11-10] MEDS: ACETAMINOPHEN 325 MG TAB PO PRN (00:20)
[2024-11-10] MEDS: LABETALOL HCL 20 MG/4 ML VL IV ONE (01:36)
[2024-11-10] MEDS: MELATONIN 5 MG TAB PO ONE (02:48)
[2024-11-10] MEDS: MORPHINE SULFATE INJ 2 MG/ml SYRG IV PRN (03:42)
[2024-11-10] MEDS: chlordiazePOXIDE HCL 25 MG CAP PO PRN (04:47)
[2024-11-10 06:57] LABS: Basophils # (auto) 0 10 ^3/uL (0-0.2); Basophils % (auto) 0.6 % (0.0-2.0); Eosinophils # (auto) 0 10 ^3/uL (0-0.8); Eosinophils % (auto) 0.3 % (0.0-7.0); Hematocrit 42.4 % (41.0-53.0); Hemoglobin 14.7 g/dL (13.5-17.5); Lymphocytes # (auto) 0.9 10 ^3/uL (0.4-5.4); Lymphocytes % (auto) 13.2 % (10.0-50.0); Mean Corpuscular Hemoglobin 32.3 pg (28.0-32.0); Mean Corpuscular Hgb Conc. 34.6 g/dL (32.0-36.0); Mean Corpuscular Volume 93.3 fL (80.0-100.0); Monocytes # (auto) 1.1 10 ^3/uL (0-1.3); Monocytes % (auto) 15.1 % (0.0-12.0); Neutrophils % (auto) 70.8 % (37.0-80.0); Platelet Count (auto) 261 10^3/uL (140-450); Red Blood Cells 4.54 10^6/uL (4.5-5.90); Red Cell Distribution Width 18.4 % (11.8-14.3)
[2024-11-10 07:25] LABS: Alanine Aminotransferase 44 U/L (7-40); Albumin 4.2 g/dL (3.2-4.8); Alkaline Phosphatase 48 U/L (46-116); Anion Gap 14 (5-15); Aspartate Aminotransferase 42 U/L (13-40); BUN/Creatinine Ratio 12.9 (10.0-20.0); Bilirubin, Total 0.6 mg/dL (0.2-1.0); Blood Urea Nitrogen 13 mg/dL (9-23); Calcium 8.9 mg/dL (8.7-10.4); Carbon Dioxide 24 mmol/L (20-31); Chloride 100 mmol/L (98-107); Glucose 98 mg/dL (74-106); Potassium 4.1 mmol/L (3.5-5.1); Sodium 138 mmol/L (136-145); Total Protein 6.8 g/dL (5.7-8.2)
[2024-11-10] MEDS: NITROGLYCERIN 0.4 MG SL TAB SL PRN (09:04)
[2024-11-10] MEDS: THIAMINE HCL 100 MG TAB PO SCH (09:43)
[2024-11-10] MEDS: MULTIPLE VITAMIN TAB PO SCH (09:43)
[2024-11-10] MEDS: FOLIC ACID 1 MG TAB PO SCH (09:43)
[2024-11-10] MEDS: COLCHICINE 0.6 MG CAP PO SCH (09:43)
[2024-11-10] MEDS: METOPROLOL SUCCINATE XL 50 MG TAB PO SCH (09:44)
[2024-11-10] MEDS: ENOXAPARIN SOD 40 MG/0.4 ML SYRINGE SC SCH (09:45)
[2024-11-10] MEDS: NALTREXONE HCL 50 MG PO SCH (10:00)
[2024-11-10] MEDS: NIFEdipine ER 30 MG TAB PO ONE (13:44)
--- NOTE | 2024-11-10 13:45 | DVHPN2 ---
Reviewed: Care Plan, H&P, Medications, Previous Orders, Radiology Changes from previous H/P or p: No Changes General: Per HPI Objective Vitals Vital Signs Date Time Temp Pulse Resp B/P (MAP) Pulse Ox O2 Delivery O2 Flow Rate FiO2 11/10/24 12:32 98.2 79 18 171/87 (115) 97 98.2 11/09/24 20:45 Room Air* 0 21 Intake/Output Intake and Output 11/10/24 07:00 Intake Total 1150 ml Output Total 150 ml Balance 1000 ml Intake Oral 1100 ml IV Total 50 ml Output Urine Total 150 ml # Voids 2 General Appearance: Alert, Oriented X3, Cooperative HEENT: Atraumatic Cardiovascular: Regular rate, Normal S1, Normal S2 Abdomen: Normal bowel sounds Medications Current Medications Medications Dose Ordered Sig/Ancelmo Route Start Time Stop Time Status Last Admin Dose Admin Acetaminophen/ Hydrocodone Bitart 1 tab Q4HP PRN PO 11/09/24 17:00 11/10/24 12:19 1 TAB Ondansetron HCl 4 mg Q4HP PRN IV 11/09/24 17:00 11/09/24 21:09 4 MG Enoxaparin Sodium 40 mg DAILY SC 11/10/24 10:00 11/10/24 09:45 40 MG Acetaminophen 650 mg Q6HP PRN PO 11/09/24 17:00 11/10/24 00:20 650 MG Nitroglycerin 0.4 mg Q5MINP PRN SL 11/09/24 17:00 11/10/24 09:16 0.4 MG Morphine Sulfate 2 mg Q30M PRN IV 11/09/24 17:00 11/10/24 05:20 2 MG Colchicine 0.6 mg DAILY PO 11/10/24 10:00 11/10/24 09:43 0.6 MG Famotidine 20 mg BID PO 11/09/24 22:00 11/10/24 09:43 20 MG Metoprolol Succinate 50 mg DAILY PO 11/10/24 10:00 11/10/24 09:44 50 MG Patient Own Medication 50 mg BID PO 11/09/24 22:00 Patient Own Medication 50 mg DAILY PO 11/10/24 10:00 Ceftriaxone Sodium 50 ml @ 100 mls/hr DAILY@09 IV 11/09/24 17:15 11/10/24 09:47 100 MLS/HR Thiamine HCl 100 mg DAILY PO 11/10/24 10:00 11/10/24 09:43 100 MG Folic Acid 1 mg DAILY PO 11/10/24 10:00 11/10/24 09:43 1 MG Multivitamins 1 tab DAILY PO 11/10/24 10:00 11/10/24 09:43 1 TAB Chlordiazepoxide HCl 25 mg Q6HPRN PRN PO 11/10/24 04:00 11/10/24 12:19 25 MG Nifedipine 30 mg DAILY PO 11/11/24 10:00 Laboratory Results Laboratory Tests 11/10/24 06:14 Chemistry Test 11/09/24 15:35 11/09/24 16:32 11/10/24 06:14 Calcium Level 9.7 mg/dL (8.7-10.4) 8.9 mg/dL (8.7-10.4) Magnesium Level 2.0 mg/dL (1.6-2.6) Albumin 4.2 g/dL (3.2-4.8) Total Protein 6.8 g/dL (5.7-8.2) LFT Test 11/10/24 06:14 Alanine Aminotransferase (ALT) 44 U/L (7-40) H Alkaline Phosphatase 48 U/L (46-116) Aspartate Amino Transferase (AST) 42 U/L (13-40) H Total Bilirubin 0.6 mg/dL (0.2-1.0) Labs and/or images reviewed: Labs reviewed by me, Image(s) reviewed by me Assessment/Plan Assessment/Plan Autonomic imbalance Tooth cavities ETOH abuse Tobacco use Obesity Maxillary sinusitis Possible carotid artery calcification History of hypertension History of hyperlipidemia History of [place] History of gout History of gastritis History of alcohol pancreatitis History of tonsillectomy History excision of toe by History of left hand plate History of right hand screw History of bilateral carpal tunnel surgery History of bilateral knee surgery History of bilateral surgery surgery History of left foot surgery x5 History of bilateral elbow surgery 11/10/2024: pending MRI and echo result Plan discussed with: Patient My Orders Orders - JUSTINA ALVARENGA DO Procedure Category Date Status Time Nifedipine Er PHA 11/11/24 In Process (Procardia Xl 10:00 Date of Service: November 10, 2024 Billing Provider: JUSTINA ALVARENGA DO Common Visit Codes: [id number] INP/OBS CARE(HIGH) JUSTINA ALVARENGA DO November 10, 2024 13:45
--- NOTE | 2024-11-10 14:30 | ECG ---
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
--- NOTE | 2024-11-10 14:58 | DVH ---
PROCEDURE: MRI BRAIN HEAD WO CONTRAST INDICATION: syncope EXAM DATE: 11/10/2024 02:09 PM COMPARISON: None TECHNIQUE: MRI of the brain without intravenous contrast. FINDINGS: Diffusion weighted images of the brain demonstrate no evidence of acute infarction. There is no evidence of acute intracranial hemorrhage, extra-axial collection, mass effect, midline s hift, herniation or hydrocephalus. Oscar cisterna magna. Mild changes of chronic microvascular ischemic disease. There are no signal abnormalities on the susceptibility weighted sequences. The major vascular flow voids are present. The visualized paranasal sinuses and mastoid air cells are clear. The surrounding soft tissues and o sseous structures are unremarkable. IMPRESSION: 1. No evidence of acute infarction, intracranial hemorrhage, mass effect or hydrocephalus. HS:Y
--- NOTE | 2024-11-10 16:19 | ECG ---
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
--- NOTE | 2024-11-10 16:20 | ECG ---
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
[2024-11-10] MEDS: hydrALAZINE HCL 20 MG/ML VL IV PRN (18:59)
[2024-11-10] MEDS: traMADol HCL 50 MG TAB PO ONE (21:19)
[2024-11-11 05:00] VITALS: BP 147/98; PULSE 80; RESP 19; TEMP 97.6; O2SAT 97
[2024-11-11 08:00] VITALS: PULSE 65; PULSE 80; RESP 18; O2SAT 96
[2024-11-11 08:58] VITALS: BP 137/90; PULSE 80; RESP 18; TEMP 98.2; O2SAT 96
[2024-11-11] MEDS: NIFEdipine ER 30 MG TAB PO SCH (09:41)
[2024-11-11 13:00] VITALS: BP 151/92; PULSE 82; RESP 18; TEMP 97.2; O2SAT 95
[2024-11-11] MEDS ORDERED: NIFE1TAB31 PO (13:03)
--- NOTE | 2024-11-11 13:05 | DVHDS2 ---
Discharge Summary Date of Admission November 09, 2024 at 16:50 Date of Discharge: November 11, 2024 Labs/Diagnostic Data: Laboratory Results Test 11/10/24 06:14 11/09/24 16:32 11/09/24 16:27 11/09/24 15:35 White Blood Count 7.0 10^3/uL (4.4-10.8) Red Blood Count 4.54 10^6/uL (4.5-5.90) Hemoglobin 14.7 g/dL (13.5-17.5) Hematocrit 42.4 % (41.0-53.0) Mean Corpuscular Volume 93.3 fL (80.0-100.0) Mean Corpuscular Hemoglobin 32.3 pg (28.0-32.0) Mean Corpuscular Hemoglobin Concent 34.6 g/dL (32.0-36.0) Red Cell Distribution Width 18.4 % (11.8-14.3) Platelet Count 261 10^3/uL (140-450) Mean Platelet Volume 7.9 fL (6.9-10.8) Neutrophils (%) (Auto) 70.8 % (37.0-80.0) Lymphocytes (%) (Auto) 13.2 % (10.0-50.0) Monocytes (%) (Auto) 15.1 % (0.0-12.0) Eosinophils (%) (Auto) 0.3 % (0.0-7.0) Basophils (%) (Auto) 0.6 % (0.0-2.0) Neutrophils # (Auto) 5.0 10 ^3/uL (1.6-8.6) Lymphocytes # (Auto) 0.9 10 ^3/uL (0.4-5.4) Monocytes # (Auto) 1.1 10 ^3/uL (0-1.3) Eosinophils # (Auto) 0 10 ^3/uL (0-0.8) Basophils # (Auto) 0 10 ^3/uL (0-0.2) Nucleated Red Blood Cells 0.0 % Sodium Level 138 mmol/L (136-145) Potassium Level 4.1 mmol/L (3.5-5.1) Chloride Level 100 mmol/L (98-107) Carbon Dioxide Level 24 mmol/L (20-31) Anion Gap 14 (5-15) Blood Urea Nitrogen 13 mg/dL (9-23) Creatinine 1.01 mg/dL (0.700-1.30) Glomerular Filtration Rate Calc 85 mL/min (>90) BUN/Creatinine Ratio 12.9 (10.0-20.0) Serum Glucose 98 mg/dL (74-106) Calcium Level 8.9 mg/dL (8.7-10.4) Total Bilirubin 0.6 mg/dL (0.2-1.0) Aspartate Amino Transferase (AST) 42 U/L (13-40) Alanine Aminotransferase (ALT) 44 U/L (7-40) Alkaline Phosphatase 48 U/L (46-116) Total Protein 6.8 g/dL (5.7-8.2) Albumin 4.2 g/dL (3.2-4.8) Magnesium Level 2.0 mg/dL (1.6-2.6) Troponin I High Sensitivity 9 ng/L (</=54) Urine Opiates Screen Neg (NEGATIVE) Urine Fentanyl Screen Neg (NEGATIVE) Urine Barbiturates Screen Neg (NEGATIVE) Urine Phencyclidine Screen Neg (NEGATIVE) Urine Amphetamines Screen Neg (NEGATIVE) Urine Benzodiazepines Screen Neg (NEGATIVE) Urine Cocaine Screen Neg (NEGATIVE) Urine Cannabinoids Screen Neg (NEGATIVE) Plasma/Serum Blood Alcohol 343.4 mg/dL (<10) Other Laboratory Tests 11/10/24 06:14 Brief Hx & Hospital Course: Jonny Valiente is a 59-year-old male with past medical history of hypertension, hyperlipidemia, [place], gout, gastritis, alcoholic pancreatitis, tonsillectomy, excision of tophi, left hand plate, right hand screw, bilateral carpal tunnel surgery, bilateral knee surgery, bilateral shoulder surgery, left foot surgery x5, and bilateral elbow surgery who presents to the ED with a syncopal episode. 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 Patient reports that he passed out on his right side and complains of right sided head pain. Patient reports that when he woke up EMS had taken him to the hospital. When discussed the results of the imaging patient states that he is aware that he has multiple cavities. He also endorses that he sees a psychiatrist at the [facility] for his PTSD and he is on medications but does not recall with the name is. Patient also reports that he walks and is bowlegged. Patient denies any chest pain, shortness of breath, abdominal pain, nausea, vomiting, diarrhea, recent travels, recent sick contacts, recent ingestion of spoiled food, or dysuria symptoms. Autonomic imbalance Tooth cavities ETOH abuse Tobacco use Obesity Maxillary sinusitis Possible carotid artery calcification History of hypertension History of hyperlipidemia History of [place] History of gout History of gastritis History of alcohol pancreatitis History of tonsillectomy History excision of toe by History of left hand plate History of right hand screw History of bilateral carpal tunnel surgery History of bilateral knee surgery History of bilateral surgery surgery History of left foot surgery x5 History of bilateral elbow surgery syncope Condition at Discharge: Fair Final Diagnosis/Problems List syncope Discharge Disposition: Home Discharge Instruct/Medications Diet: Cardiac 2g Na,low cholest Activity: No Restrictions, As Tolerated Discharge Statement: "Patient was advised to return to the ER or call 911 if any headaches, dizziness, shortness of breath, chest pain, abdominal pain, bleeding, fevers, or worsening of medical condition. Patient was counseled about treatment plan, medications, possible side effects, patientverbalized understanding. All questions were answered to the best of my ability. This discharge took greater then 30 minutes in planning, reviewing documentation, counseling the patient, and discussing with other team members." ASSESSMENT ASSESSMENT Assessment syncope Date of Service: November 11, 2024 Billing Provider: JUSTINA ALVARENGA DO Common Visit Codes: [id number] DISCH DAY >30min JUSTINA ALVARENGA DO November 11, 2024 13:05
[2024-11-11] MEDS: ALPRAZolam 0.5 MG TAB PO ONE (13:15)
[2024-11-11 16:10] VITALS: BP 145/105; PULSE 88; RESP 18; TEMP 98.2; O2SAT 96
[2024-11-11 16:31] VITALS: BP 154/94; PULSE 65; RESP 18; TEMP 97.7; O2SAT 98
--- NOTE | 2024-11-11 17:19 | DVHSR ---
APPROVED REPORT EXAM: Two-dimensional and M-mode echocardiogram with Doppler and color Doppler. Blood Pressure: 159/91 mmHg INDICATION Syncope RISK FACTORS Height: 5'10", Weight: 260 DIMENSIONS LVDd4.9 (3.8-5.7cm)LA (2D)4.2 (1.9-4.0cm)Aortic Root3.7 (2.0-3.7cm) LVDs3.4 (2.5-4.0cm)LA (MM) (1.9-4.0cm)Aortic Cusp Exc2.0 (1.5-2.0cm) EF (%) 60.0 (55-70%)Rt. Atrium (1.9-4.0cm)Asc. Aorta cm IVSd1.8 (0.7-1.1cm)RV (D) (1.8-2.4cm) Mitral Valve MitralMitral Stenosis E wave0.76m/sMV Mean GR.mmHg A wave0.80m/sMV Peak GR.mmHg E/A ratio0.92D MVAcm2 DECEL [id number] 1/2 Tim[place] Aortic Valve Aortic ValveAortic Stenosis V11.10m/Adonay Mean GR.3mmHg V21.07m/Adonay Peak GR.5mmHg LVOT Diameter2.4 (1.8-2.4cm)Doppler AVA4.65cm2 Pulmonic Valve V20.94m/s Other Information Quality : Technically LimitedRhythm : Technically limited study due to body habitus. Conclusion Sinus rhythm. Concentric LVH with left atrial enlargement. Valves appear to be structurally normal. EF of 60% with normal RV function. Mild TR. Trace aortic insufficiency. No pericardial effusion masses or vegetations.
== END 2024-11-11 18:30 | disposition home or self-care (01) | DRG 74 ==
LOC: EDBD 14:11 → ER 14:14 → OVERFLOW 16:50 → WEST WING 23:42 → TELE-WESTW 11-10 05:32
PROVIDERS: ADMIT Internal Medicine; ATTEND Internal Medicine
DX: G90.89 Other disorders of autonomic nervous system (principal); F10.10 Alcohol abuse, uncomplicated; E66.9 Obesity, unspecified; I10 Essential (primary) hypertension; Z68.37 Body mass index [BMI] 37.0-37.9, adult; K02.9 Dental caries, unspecified; J32.0 Chronic maxillary sinusitis; M1A.9XX1 Chronic gout, unspecified, with tophus (tophi); E78.5 Hyperlipidemia, unspecified; I25.2 Old myocardial infarction; Z88.8 Allergy status to other drugs, medicaments and biological substances
CPT/HCPCS: 36415; 70450; 70551; 71045; 72040; 80048; 80053; 80307; 80320; 83735; 84484; 85025; 87081; 93005; 93306; 93886; 96365; 99291; G0378; J2405